=== PATIENT | female | born 1990 | race Two or more races ===

== ENCOUNTER 2019-06-23 08:21 | Day surgery (SDC) | payer OTHER | END 2019-06-23 17:30 | disposition home or self-care (01) | LOC: CIR.AMB 08:21 → EDBD 08:21 → CIR.AMB 17:30 | DX: O02.1 Missed abortion (principal) ==

== ENCOUNTER 2020-10-22 12:08 | Emergency (ER) | payer OTHER ==
[~2020-10-22] VITALS: Ht 157.5 cm; Wt 45.4 kg
== END 2020-10-22 17:27 | disposition home or self-care (01) ==
LOC: ER 12:08
DX: O26.892 Other specified pregnancy related conditions, second trimester (principal); R10.2 Pelvic and perineal pain; Z34.02 Encounter for supervision of normal first pregnancy, second trimester